=== PATIENT | female | born 1995 | race Caucasian/White ===

== ENCOUNTER 2016-03-23 16:56 | Emergency (ER) | payer MEDICAID, OTHER ==
[~2016-03-23] VITALS: Ht 157.5 cm; Wt 82.6 kg
[~2016-03-23 16:56] MED LIST: IBUP600T26 PO; Z.0.BCPILL PO
[2016-03-23 17:06] VITALS: BP 106/73; PULSE 117; RESP 16; TEMP 99.5; O2SAT 97
--- NOTE | 2016-03-23 17:40 | PD ---
HPI Chief Complaint: GI Complaint Time Seen by Provider: 17:26 Travel History International Travel<30 days: No Contact w/Intl Traveler<30days: No Traveled to known affect area: No History of Present Illness HPI The patient is a 20-year-old female who presents to the emergency department for cough and cold symptoms that started earlier today. The patient complains of a headache, subjective fever, intermittent chills and sweats. She also complains of nasal congestion, dry nonproductive cough, nausea, vomiting, with one episode of loose stool. The patient also notes diffuse myalgias and arthralgias. The patient denies any dysuria, frequency, urgency, or abdominal pain. The patient states she delivered a child 6 months ago, but is unsure if she received of influenza vaccination. The patient denies any sick contacts at home. Symptoms are moderate without any alleviating or exacerbating factors. PFSH Past Medical History Heart Rhythm Problems: Yes (CARDIAC PROBLEM INFANT BUT HAS SINCE OUTGROWN 6 YEARS AGO) Diminished Hearing: No Immunizations Current: Yes Tetanus Vaccination: < 5 Years Influenza Vaccination: Yes ?: Not LMP: 03/19/16 Past Surgical History Abdominal Surgery: Yes Section: Yes Social History Alcohol Use: No Tobacco Use: Yes Substance Use: No Allergies-Medications (Allergen,Severity, Reaction): Coded Allergies: Kiwi (Verified Allergy, Severe, TONGUE SWELLING, 03/23/16) Pineapple (Verified Allergy, Severe, TONGUE SWELLING, 03/23/16) Reported Meds & Prescriptions Reported Meds & Active Scripts Active No Active Prescriptions or Reported Medications Review of Systems Except as stated in HPI: all other systems reviewed are Neg General / Constitutional: Positive: Fever, Chills HENT: Positive: Congestion, No: Sore Throat Cardiovascular: No: Chest Pain or Discomfort Respiratory: Positive: Cough, No: Shortness of Breath Gastrointestinal: Positive: Nausea, Vomiting, Diarrhea, No: Abdominal Pain Genitourinary: No: Urgency, Frequency, Dysuria, Hematuria, Decreased Urinary Output Musculoskeletal: Positive: Myalgias Skin: Positive Lumps (patient notes a red kami in the right mid back secondary to an insect bite, but denies any drainage over the affected area.), No Rash Physical Exam Narrative GENERAL: Awake, alert, pleasant 20-year-old female who appears her stated age and is in no acute respiratory distress. SKIN: Warm and dry. Small lesion and right mid back approximately 2 cm in diameter which blanches, minimally tender, no underlying fluctuance noted. Stria of the abdomen noted. HEAD: Atraumatic. Normocephalic. EYES: Pupils equal and round. No scleral icterus. No injection or drainage. ENT: No nasal bleeding or discharge. Slightly dry mucous membranes. Minimal erythema but no exudate located in the posterior oropharynx. NECK: Trachea midline. No JVD. CARDIOVASCULAR: Regular, tachycardic with a heart rate of 115. RESPIRATORY: No accessory muscle use. Clear to auscultation. Breath sounds equal bilaterally. GASTROINTESTINAL: Abdomen soft, non-tender, nondistended. No rebound tenderness. Negative Vasques's. Negative McBurney's. Back: No CVA tenderness. MUSCULOSKELETAL: No obvious deformities. No clubbing. No cyanosis. No edema. NEUROLOGICAL: Awake and alert. No obvious cranial nerve deficits. Motor grossly within normal limits. Normal speech. PSYCHIATRIC: Appropriate mood and affect; insight and judgment normal. Data Data Last Documented VS Vital Signs Date Time Temp Pulse Resp B/P Pulse Ox O2 Delivery O2 Flow Rate FiO2 03/23/16 17:06 99.5 117 16 106/73 97 Orders Influenzae A/B Antigen (03/23/16 17:34) Chest, Single Ap (03/23/16 ) Urinalysis - C+S If Indicated (03/23/16 17:34) Ed Urine Pregnancytest Poc (03/23/16 17:34) Sodium Chlor 0.9% 1000 Ml Inj (Ns 1000 M (03/23/16 17:45) Ondansetron Inj (Zofran Inj) (03/23/16 17:45) Acetaminophen (Tylenol) (03/23/16 17:45) Labs Laboratory Tests Test 03/23/16 17:30 Urine Collection Type CLEAN CATCH Urine Color YELLOW Urine Turbidity CLEAR Urine pH 6.5 Urine Specific [place] 1.011 Urine Protein NEG mg/dL Urine Glucose (UA) NEG mg/dL Urine Ketones NEG mg/dL Urine Occult Blood TRACE Urine Nitrite NEG Urine Bilirubin NEG Urine Leukocyte Esterase NEG Urine RBC 0-3 /hpf Urine Squamous Epithelial > 8 /hpf Cells Microscopic Urinalysis Comment CULT NOT INDICATED Urine Collection Time 17:30 [facility] Medical Decision Making Medical Screen Exam Complete: Yes Emergency Medical Condition: Yes Medical Record Reviewed: Yes Interpretation(s) Last Impressions Chest X-Ray 03/23/16 0000 Signed Impressions: Service Date/Time: March 17:45 - CONCLUSION: No evidence of acute cardiopulmonary disease. Carlos Alberto Up MD Laboratory Tests Test 03/23/16 17:30 Urine Collection Type CLEAN CATCH Urine Color YELLOW Urine Turbidity CLEAR Urine pH 6.5 Urine Specific [place] 1.011 Urine Protein NEG mg/dL Urine Glucose (UA) NEG mg/dL Urine Ketones NEG mg/dL Urine Occult Blood TRACE Urine Nitrite NEG Urine Bilirubin NEG Urine Leukocyte Esterase NEG Urine RBC 0-3 /hpf Urine Squamous Epithelial > 8 /hpf Cells Microscopic Urinalysis Comment CULT NOT INDICATED Urine Collection Time 17:30 Date/Time Procedure Status Source Growth 03/23/16 17:40 Influenza Types A,B Antigen ([place]) - Final Complete Nasal Aspirate Positive For Flu A Antigen Differential Diagnosis Differential diagnosis includes influenza, pneumonia, pyelonephritis, viral syndrome, gastroenteritis, dehydration, sepsis. Narrative Course IV was established, the patient was placed on cardiac telemetry monitoring and continuous pulse oximetry monitoring. Chest x-ray was obtained. UA was sent to lab and bedside UA test was obtained. Influenza screen was sent to lab. The patient was administered Tylenol 650 mg orally, 1 L normal saline, and Zofran 4 mg intravenously. Chest x-ray was negative for pneumonia. UA is essentially unremarkable, however, influenza screen is positive for influenza A. The patient will be placed on Tamiflu and discharged home with Zofran and Tamiflu. Patient is advised to drink plenty of fluids, alternate Tylenol and Motrin for fever, and hand washing precautions at home. Diagnosis Primary Impression: Influenza A Patient Instructions: General Instructions Additional Instructions: Work excuse for 3 days. Plenty of fluids to stay hydrated. Tamiflu and Zofran as directed. Alternate Tylenol and Motrin for pain and fever. Return if symptoms worsen or progress. Follow-up with your primary physician. Med/Other Pt SpecificInfo: Prescription(s) given Scripts Ondansetron Odt (Zofran Odt)4 Mg Tab4 Mg SL Q6HR PRN (Nausea/Vomiting) #7 TAB Ref 0 Prov:Pete Perez MD 03/23/16 Oseltamivir (Tamiflu)75 Mg Cap75 Mg PO BID 5 Days Ref 0 Prov:Pete Perez MD 03/23/16 Disposition: 01 DISCHARGE HOME Condition: Stable Pete Perez MD Mar 23, 2016 17:40
[2016-03-23] MEDS ORDERED: SODIUM CHLOR 0.9% 1000 ML INJ 1,000 ML IV ONE (17:45)
[2016-03-23] MEDS ORDERED: ACETAMINOPHEN 325 MG TAB PO ONE (17:45)
[2016-03-23] MEDS ORDERED: ONDANSETRON HCL 4 MG/2 ML VIAL IV PUSH ONE (17:45)
[2016-03-23 17:52] LABS: BLOOD, URINE TRACE (NEG); GLUCOSE,URINE NEG (NEG); KETONE, URINE NEG (NEG); NITRITE,URINE NEG (NEG); PH, URINE 6.5 (5.0-8.5)
[2016-03-23 17:55] LABS: COMMENT (UR) CULT NOT INDICATED; CULTURE IF INDICATED CULT NOT INDICATED; METHOD OF COLLECTION CLEAN CATCH; RBC, URINE 0-3 /hpf (0-3); SQUAMOUS EPITHELIAL CELL URINE > 8 /hpf (0-5); URINE COLOR YELLOW (YELLW/STRAW)
--- NOTE | 2016-03-23 17:59 | RADHPO ---
EXAM DATE/TIME: 03/23/2016 17:45 [facility] COMPARISON: CHEST SINGLE AP, October 22, 2014, 2:44. INDICATIONS : Fever after bug bite. MEDICAL HISTORY : None. SURGICAL HISTORY : None. ENCOUNTER: Initial ACUITY: 1 day PAIN SCORE: 0/10 LOCATION: Bilateral chest FINDINGS: A single view of the chest demonstrates the lungs to be symmetrically aerated without evidence of mas s, infiltrate or effusion. The cardiomediastinal contours are unremarkable. Osseous structures are intact. CONCLUSION: No evidence of acute cardiopulmonary disease. Carlos Alberto Up MD on March 23, 2016 at 17:57 Board Certified Radiologist. This report was verified electronically.
[2016-03-23] MEDS ORDERED: OSEL75 PO (18:37)
[2016-03-23] MEDS ORDERED: ZOFR4TAB3 SL (18:37)
== END 2016-03-23 18:51 | disposition home or self-care (01) ==
LOC: PHED 16:56
DX: J10.1 Influenza due to other identified influenza virus with other respiratory manifestations (principal); Z72.0 Tobacco use; B97.89 Other viral agents as the cause of diseases classified elsewhere
CPT/HCPCS: 71010; 81001; 84703; 87804; 96374; 99283; J2405; J7030